=== PATIENT | female | born 1995 | race Caucasian/White ===

== ENCOUNTER 2017-01-11 23:28 | Emergency (ER) | payer BC, OTHER ==
[~2017-01-11] VITALS: Ht 172.7 cm; Wt 70.0 kg
[~2017-01-11 23:28] MED LIST: AMOX500C3 PO; BCPILLS PO; CITA20TA9 PO
[2017-01-11 23:36] VITALS: TEMP 36.7; Ht 172.7 cm; Wt 70.0 kg
[2017-01-12] MEDS ORDERED: NORE1DIS7 TOP (00:27)
[2017-01-12] MEDS ORDERED: RANI150T2 PO (00:27)
[2017-01-12] MEDS ORDERED: SODIUM CHLORIDE 0.9% 1000ML 1,000 ML IV STA (00:27)
[2017-01-12] MEDS ORDERED: KETOROLAC TROMETHAMINE 30 MG/ML VIAL IV STA (00:27)
[2017-01-12 00:42] LABS: URINE APPEARANCE CLEAR (CLEAR); URINE BILIRUBIN NEG (NEG); URINE COLOR YELLOW; URINE EPITHELIAL CELL AUTO >30 /lpf (0-5); URINE NITRITE NEG (NEG); URINE PH >= 9.0 (4.5-7.5); URINE SPECIFIC GRAVITY 1.012 (1.000-1.030); UROBILINOGEN NEG (NEG); ZZUR CULT IF INDIC CLEAN CATCH YES
[2017-01-12 00:50] LABS: MANUAL MICROSCOPIC REQUIRED? NO; REVIEW REQ? NO
[2017-01-12 01:06] LABS: BASO % 0.2 %; BASO ABS # 0.02 K/uL (0-0.2); COMPLETE YES; EOS % 0.7 %; HEMATOCRIT 39.1 % (37-47); IG% 0.2 %; LYMPH % 19.3 %; LYMPH ABS # 2.17 K/uL (1.2-3.4); MEAN CELL VOLUME 87.3 fL (80-100); MEAN CORPUSCULAR HEMOGLOBIN 30.6 pg (25-34); MEAN PLATELET VOLUME 10.7 fL (7.4-10.4); NEUT % 73.6 %; PLATELET COUNT 333 K/uL (130-400); RED BLOOD COUNT 4.48 M/uL (4.2-5.4); WHITE BLOOD COUNT 11.26 K/uL (4.8-10.8)
[2017-01-12 01:15] LABS: BUN/CREATININE RATIO 10.1 (10-20); CALCIUM 8.8 mg/dl (8.5-10.1); CREATININE 0.81 mg/dl (0.60-1.20); POTASSIUM 3.6 mmol/L (3.5-5.1)
[2017-01-12 01:17] LABS: ALB/GLOB RATIO 0.9 (0.9-2)
[2017-01-12] MEDS ORDERED: HYDR-5688 PO (02:20)
--- NOTE | 2017-01-12 02:21 | EMERGENCY ROOM VISIT NOTE ---
History First contact with patient: 23:46 Chief Complaint: BACK PAIN Stated Complaint: LOWER BACK PAIN INTO RT SIDE OF GROIN History of Present Illness The patient is a 21 year old female who presents to the Emergency Department by private vehicle for evaluation of RIGHT-sided flank and groin pain. She reports that she noticed some mild discomfort yesterday, but she had worsening pain over the last 2 hours. She had discomfort with the ride in the car to the emergency department. Her pain has since settled down. She is taking no medication for pain. She reports a history of ovarian cyst as well as kidney stone. She denies a prior abdominal surgeries otherwise. The patient rates her current discomfort as a 6/10. She denies any fevers, chills, as is, lightheadedness, chest pain, palpitations, nausea, vomiting, hematochezia, melena, hematuria, or dysuria. She denies any chance for . Review of Systems A complete 10-point Review of Systems was discussed with the patient, with pertinent positives and negatives listed in the History of Present Illness. All remaining Review of Systems questions can be considered negative unless otherwise specified. Past Medical/Surgical History Medical Problems: (1) Ovarian cyst Surgical Problems: (1) No significant past surgical history Social History Smoking Status: Never Smoker Smokeless Tobacco Use: No Alcohol Use: occasionally Marital Status: single Housing Status: lives with family Occupation Status: employed Current/Historical Medications Scheduled Norelgestromin-Ethinyl Estradi (Xulane 150-35 Mcg/24Hr), 1 PATCH TOP WK Ranitidine HCl (Ranitidine HCl), 150 MG PO BID Scheduled PRN Hydrocodone/Acetaminophen 5MG/325MG ([place] 5MG/325MG), 1-2 TABLET PO Q4H PRN for Pain Allergies Coded Allergies: No Known Allergies (Unverified , 01/12/17) Physical Exam Vital Signs Date Time Temp Pulse Resp B/P Pulse Ox O2 Delivery O2 Flow Rate FiO2 01/12/17 02:33 64 18 108/70 98 01/12/17 01:28 60 18 87/56 100 Room Air 01/11/17 23:36 36.7 67 18 116/80 99 Pain Rating (0-10): 6 Physical Exam VITAL SIGNS - Vital signs and nursing notes were reviewed. GENERAL - 21-year-old female appearing her stated age who is in no acute distress. Communicates well with provider and answers questions appropriately. LUNGS - Chest wall symmetric without accessory muscle use, intercostals retractions, or central cyanosis. Normal vesicular breath sounds CTA B/L. No wheezes, rales, or rhonchi appreciated. CARDIAC - RRR with S1/S2. No murmur, rubs, or gallops appreciated. ABDOMEN - Abdominal contour flat and without pulsations or visible masses. BS normoactive all four quadrants. No tenderness to palpation appreciated throughout. No guarding. No Rebound Tenderness. Negative Rovsing's. Negative Rock's. No palpable masses, hepatosplenomegaly, or ascites noted. Mild CVA tenderness to percussion to the RIGHT flank. PSYCH - A&Ox3 and cooperates fully with examiner. Pt is very pleasant and interacts well with examiner. Medical Decision & Procedures ER Provider Diagnostic Interpretation: KUB was obtained and demonstrates no acute intra-abdominal findings or appreciable stones per myself and my attending. Radiologist's impression unavailable at the time of dictation. Radiological imaging and reports were reviewed by myself. Radiologist's Interpretation per [facility] as follows: US RENAL: Mild right hydronephrosis with a 7 mm stone in the proximal right ureter. No left hydronephrosis. Diminished right bladder jet compared to the left. Laboratory Results 01/11/17 23:40 Red Blood Count 4.48, Mean Corpuscular Volume 87.3, Mean Corpuscular Hemoglobin 30.6, Mean Corpuscular Hemoglobin Concent 35.0, Mean Platelet Volume 10.7, Neutrophils (%) (Auto) 73.6, Lymphocytes (%) (Auto) 19.3, Monocytes (%) (Auto) 6.0, Eosinophils (%) (Auto) 0.7, Basophils (%) (Auto) 0.2, Neutrophils # (Auto) 8.30, Lymphocytes # (Auto) 2.17, Monocytes # (Auto) 0.67, Eosinophils # (Auto) 0.08, Basophils # (Auto) 0.02 01/11/17 23:40 Test 01/11/17 23:40 White Blood Count 11.26 K/uL (4.8-10.8) Red Blood Count 4.48 M/uL (4.2-5.4) Hemoglobin 13.7 g/dL (12.0-16.0) Hematocrit 39.1 % (37-47) Mean Corpuscular Volume 87.3 fL (80-100) Mean Corpuscular Hemoglobin 30.6 pg (25-34) Mean Corpuscular Hemoglobin Concent 35.0 g/dl (32-36) Platelet Count 333 K/uL (130-400) Mean Platelet Volume 10.7 fL (7.4-10.4) Neutrophils (%) (Auto) 73.6 % Lymphocytes (%) (Auto) 19.3 % Monocytes (%) (Auto) 6.0 % Eosinophils (%) (Auto) 0.7 % Basophils (%) (Auto) 0.2 % Neutrophils # (Auto) 8.30 K/uL (1.4-6.5) Lymphocytes # (Auto) 2.17 K/uL (1.2-3.4) Monocytes # (Auto) 0.67 K/uL (0.11-0.59) Eosinophils # (Auto) 0.08 K/uL (0-0.5) Basophils # (Auto) 0.02 K/uL (0-0.2) RDW Standard Deviation 41.1 fL (36.4-46.3) RDW Coefficient of Variation 12.8 % (11.5-14.5) Immature Granulocyte % (Auto) 0.2 % Immature Granulocyte # (Auto) 0.02 K/uL (0.00-0.02) Urine Color YELLOW Urine Appearance CLEAR (CLEAR) Urine pH >= 9.0 (4.5-7.5) Urine Specific [place] 1.012 (1.000-1.030) Urine Protein NEG (NEG) Urine Glucose (UA) NEG (NEG) Urine Ketones NEG (NEG) Urine Occult Blood 3+ (NEG) Urine Nitrite NEG (NEG) Urine Bilirubin NEG (NEG) Urine Urobilinogen NEG (NEG) Urine Leukocyte Esterase TRACE (NEG) Urine WBC (Auto) 5-10 /hpf (0-5) Urine RBC (Auto) >30 /hpf (0-4) Urine Hyaline Casts (Auto) 1-5 /lpf (0-5) Urine Epithelial Cells (Auto) >30 /lpf (0-5) Urine Bacteria (Auto) 1+ (NEG) Urine Test NEG (NEG) Anion Gap 6.0 mmol/L (3-11) Est Creatinine Clear Calc Drug Dose 110.8 ml/min Estimated GFR () 120.3 Estimated GFR (Non- 103.8 BUN/Creatinine Ratio 10.1 (10-20) Calcium Level 8.8 mg/dl (8.5-10.1) Total Bilirubin 0.3 mg/dl (0.2-1) Aspartate Amino Transf (AST/SGOT) 13 U/L (15-37) Alanine Aminotransferase (ALT/SGPT) 28 U/L (12-78) Alkaline Phosphatase 72 U/L (45-117) Total Protein 7.9 gm/dl (6.4-8.2) Albumin 3.7 gm/dl (3.4-5.0) Globulin 4.2 gm/dl (2.5-4.0) Albumin/Globulin Ratio 0.9 (0.9-2) Lipase 235 U/L (73-393) Medications Administered Medications (Trade) Dose Ordered Sig/Priyanka Route Start Time Stop Time Status Last Admin Dose Admin Sodium Chloride (Nss 1000ml) 1,000 ml @ 999 mls/hr Q1H1M STAT IV 01/12/17 00:27 01/12/17 01:27 DC 01/12/17 00:35 999 MLS/HR Ketorolac Tromethamine (Toradol Inj) 30 mg NOW STAT IV 01/12/17 00:27 01/12/17 00:30 DC 01/12/17 00:36 30 MG Acetaminophen/ Hydrocodone Bitart ([place] 5/325mg Home Pack) 1 homepack UD ONCE PO 01/12/17 02:30 01/12/17 02:31 DC 01/12/17 02:29 1 HOMEPACK ED Course Patient was seen and evaluated by myself. Previous emergency department visit notes were reviewed. Labs were drawn, saline lock in place. KUB and renal ultrasounds were obtained. Patient was treated with 30 mg Toradol intravenously. She was hydrated with a 1000 mL normal saline bolus. Laboratory results demonstrate a mild leukocytosis. The patient is not anemic. There are no significant electrolyte abnormalities. Urinalysis demonstrates blood, but no signs of infection. Patient was reevaluated and feels much better at this time. The patient was educated on today's findings. She was offered admission for pain control and evaluation of her large 7 mm obstructing stone versus conservative management with outpatient care at home. She would rather be discharged home. She was instructed to follow-up with urology from today's visit. She was educated on worrisome symptoms for return visit to the emergency department. Patient discharged home afebrile and in good condition. Medical Decision Given the patient's presentation and stated complaints, I did elect to perform the above-mentioned workup. The patient presents with pain to the RIGHT flank. She has no fever or significant leukocytosis. Her urinalysis consistent with blood. KUB was otherwise unremarkable. Ultrasound demonstrated obstructing proximal 7 mm calculi. Her pain was adequately controlled with IV Toradol alone. She was copiously hydrated. Patient does not wish to be admitted at this point. She'll rather follow-up with urology in the outpatient setting. I feel that this is most appropriate given her lack of symptoms with allergy at this point. She was provided pain control to use at home. She'll follow-up with urology from today's visit or return for any changing/worsening symptoms. Patient discharged home afebrile and in good condition. In the evaluation and treatment of this patient, the following differential diagnoses were considered: Pyelonephritis, hydronephrosis, appendicitis, diverticulitis, diverticulosis, ovarian torsion, ruptured ovarian cyst, ectopic , amongst others. Impression Primary Impression: Calculus of proximal right ureter Additional Impression: Renal colic on right side Departure Information Dispostion Home / Self-Care Condition GOOD Prescriptions Hydrocodone/Acetaminophen 5MG/325MG ([place] 5MG/325MG) Tab 1-2 TABLET PO Q4H Y for Pain, #24 TAB For Initial Treatment Prov: William Rhoades, ASIA 01/12/17 Referrals Rommel Bhatia (PCP) Mya Alcantara MD Patient Instructions Kidney Stones - [facility] Additional Instructions You have been treated in the Emergency Department today for a Kidney Stone ( Nephrolithiasis). You have been prescribed [place] to be used for pain control. This is a narcotic medication. You cannot drive or consume alcohol while on this medicine. This medicine should only be used for pain that cannot be controlled with over-the- counter pain medicines. For pain control, you can use the following [id number] medicines (if >12 yo): - Regular strength (325mg/tab) Tylenol (acetaminophen) 2 tabs every 4-6 hours as needed. Do not exceed 12 tablets in a 24 hour period. Avoid taking more than 4 grams (4000 mg) of Tylenol per day. This includes any other sources of acetaminophen you may take on a regular basis. - Regular strength (200 mg/tab) Advil (ibuprofen) 1-2 tabs every 4-6 hours as needed. Do not exceed a dose of 3200 mg per day. You have been provided a strainer and specimen collection cup. You should strain your urine to collect any passed stones. Your stones can be placed into the specimen cup and taken to your Urologist for further evaluation. You have been provided the contact information for the on-call Urologist. You should contact the Urologist's office tomorrow to establish a follow-up appointment from today's Emergency Department visit. Return to the Emergency Department if your symptoms persist despite the treatment plan outlined above or if you develop the following symptoms: intractable pain, fever, chills, or large amounts of blood in your urine. Problem Qualifiers
[2017-01-12] MEDS ORDERED: NORCO 5/325MG HOME PACK PO ONE (02:30)
[2017-01-12 02:33] VITALS: BP 108/70; PULSE 64; O2SAT 98
--- NOTE | 2017-01-12 07:08 | DIAGNOSTIC IMAGING REPORT ---
ULTRASOUND KIDNEYS AND BLADDER CLINICAL HISTORY: Right flank pain. COMPARISON STUDY: Abdominal CT dated 12/16/2015. TECHNIQUE: Real-time, grayscale, and color flow sonography of the kidneys and bladder is performed. Images are reviewed in the transverse and longitudinal planes. FINDINGS: Kidneys: The kidneys are normal in size and echotexture. The right kidney measures 10.2 x 4.4 x 5.4 cm and the left kidney measures 9.9 x 5.3 x 5.0 cm. There is a 7 mm shadowing obstructing calculus just below the right ureteropelvic junction. This causes mild right-sided hydronephrosis. No left-sided hydronephrosis is seen. There is no sonographic evidence of contour deforming renal mass lesion. No perinephric fluid is identified. Bladder: The bladder is normal in appearance. Bilateral ureteral jets were seen. The left jet is significantly stronger than the right. IMPRESSION: 1. There is a 7 mm obstructing calculus in the right proximal ureter just below the ureteropelvic junction. This causes mild right hydronephrosis. 2. There is no left-sided hydronephrosis. 3. The bladder is normal as imaged. Electronically signed by: Iban Smith M.D. 01/12/2017 7:06 AM Dictated Date/Time: 01/12/2017 7:04 AM
--- NOTE | 2017-01-12 07:28 | DIAGNOSTIC IMAGING REPORT ---
KUB CLINICAL HISTORY: Right flank pain. FINDINGS: 2 AP supine abdominal radiograph are correlated with renal ultrasound performed concurrently on 01/12/2017. There is a nonobstructed abdominal bowel gas pattern noting moderate colonic fecal retention. A 4 mm calcification projects over the right proximal ureter just below the transverse process of L2. This likely corresponds to the obstructing ureteral stone seen by ultrasound. No additional calcifications are seen projecting over either kidney or along the course of the ureters. The bony structures appear intact. IMPRESSION: A 4 mm calcification projects over the right proximal ureter, likely corresponding to the obstructing ureteral stone seen by ultrasound. Electronically signed by: Iban Smith M.D. 01/12/2017 7:26 AM Dictated Date/Time: 01/12/2017 7:24 AM
[2017-01-27] MEDS ORDERED: TRAM-10 PO (11:59)
[2017-01-27] MEDS ORDERED: ONDA4TAB46 PO (11:59)
[2017-01-27] MEDS ORDERED: VNTHFA/IN INH (12:02)
== END 2017-01-12 02:34 | disposition home or self-care (01) ==
LOC: C.EDB 23:30 → C.EDA 01-12 02:34
DX: N13.2 Hydronephrosis with renal and ureteral calculous obstruction (principal); N23 Unspecified renal colic; M54.5 Low back pain

== ENCOUNTER → 2017-01-25 | Outpatient (CLI) | payer OTHER ==
[~2017-01-25] MED LIST changes: -AMOX500C3 PO; -BCPILLS PO; -CITA20TA9 PO; +HYDR-5688 PO; +NORE1DIS7 TOP; +ONDA4TAB46 PO; +RANI150T2 PO; +TRAM-10 PO; +VNTHFA/IN INH
--- NOTE | 2017-01-25 14:53 | DIAGNOSTIC IMAGING REPORT ---
KUB HISTORY: N20.1 Ureteral [id number] COMPARISON: KUB 01/12/2017. FINDINGS: The bowel gas pattern is unremarkable. There are no dilated loops of small bowel to suggest an obstruction. There is a 4 mm calcification adjacent to the right L3 transverse process. Slightly represents the proximal right ureteral stone. No additional renal calculi identified. This has passed approximately 2 cm distal to the prior study. No pneumoperitoneum or pneumatosis. IMPRESSION: Slight distal migration within the 4 mm proximal right ureteral stone. Electronically signed by: Taiwo Wheat M.D. 01/25/2017 2:51 PM Dictated Date/Time: 01/25/2017 2:49 PM
== END | disposition home or self-care (01) ==
LOC: C.RAD 13:49
PROVIDERS: ATTEND Nurse Practitioner Adult Health
DX: N20.1 Calculus of ureter (principal)

== ENCOUNTER → 2017-01-27 | Outpatient (CLI) | payer OTHER ==
--- NOTE | 2017-01-27 19:03 | DIAGNOSTIC IMAGING REPORT ---
KUB CLINICAL HISTORY: N20.1 Ureteral stone COMPARISON STUDY: 01/25/2017 FINDINGS: The bowel gas pattern appears normal. There is a 3 mm calcification at the L3 level to the right of midline. This is consistent with a proximal right ureteral calculus. IMPRESSION: 1. No change in the position of the 3 mm proximal right ureteral calculus. Electronically signed by: Helder Goodwin M.D. 01/27/2017 7:01 PM Dictated Date/Time: 01/27/2017 7:00 PM
== END | disposition home or self-care (01) ==
LOC: C.RAD 18:32
PROVIDERS: ATTEND Nurse Practitioner Family
DX: N20.1 Calculus of ureter (principal)

== ENCOUNTER → 2017-01-28 | Day surgery (SDC) | payer OTHER ==
[2017-01-27 12:00] VITALS: Ht 172.7 cm; Wt 69.5 kg
[~2017-01-28] VITALS: Ht 172.7 cm; Wt 69.5 kg
[~2017-01-28] MED LIST changes: +ATROPINE SULFATE 0.1 MG/ML 5ML SYR IV PRN; +CIPROFLOXACIN 400MG / D5W IV SCH; +DEXAMETHASONE SOD INJ 4 MG/ML VIAL IV PRN; +DEXAMETHASONE SOD INJ 4 MG/ML VIAL ONE; +EpHEDrine SULFATE INJ 50 MG/ML AMP IV PRN; +FENTANYL CITRATE INJ 50 MCG/1 ML 2 ML VIAL IV PRN; +FENTANYL CITRATE INJ 50 MCG/1 ML 2 ML VIAL ONE; -HYDR-5688 PO; +KETOROLAC TROMETHAMINE 30 MG/ML VIAL IV. PRN; +LABETALOL HCL IV 5 MG/ML 20ML IV PRN; +LACTATED RINGER'S 1000ML 1,000 ML IV SCH; +LIDOCAINE HCL 2% 2 ML VIAL (20MG/ML) ONE; +METOCLOPRAMIDE HCL INJ 5 MG/ML 2 ML VIAL IV PRN; +MIDAZOLAM HCL 1 MG/ML 2ML VIAL ONE; +MoRPHine SULFATE 10 MG/ML CARP/VIAL IV PRN; +NURSING VERBAL MED ORDER ONE; +ONDANSETRON INJ 2 MG/ML 2 ML VIAL IV PRN; +ONDANSETRON INJ 2 MG/ML 2 ML VIAL ONE; +OXYCODONE/ACETAMINOPHEN 5-325 TAB PO PRN; +PHENYLEPHRINE 100MCG/ML 5ML SYR IV PRN; +PROPOFOL IV EMULSION 10 MG/ML 20 ML VIAL IV ONE
--- NOTE | 2017-01-28 07:08 | History & Physical Bridge Note ---
H&P Re-Evaluation Bridge Note: I have examined the patient, reviewed the History & Physical and in the interval since the performance of the History & Physical I have noted the following changes of clinical significance: No changes noted
--- NOTE | 2017-01-28 08:47 | Discharge Instructions ---
Discharge Instructions Date of Service Jan 28, 2017. Admission Reason for Admission: Stones Discharge Discharge Diagnosis / Problem: R upper ureteral stone s/p ESWL Discharge Goals Goal(s): Decrease discomfort, Improve disease control, Therapeutic intervention Activity Recommendations Activity Limitations: per Instructions/Follow-up section Lifting Limitations: gradually increase as tolerated Exercise/Sports Limitations: rest today, gradually increase as tolerated May Resume Sexual Activity: when tolerated Shower/Bathe: no limitations Driving or Machine Use: resume 1 day after discharge Has pain meds at home . Instructions / Follow-Up Instructions / Follow-Up Strain urine as instructed KUB prior to follow-up appointment to check on stone Discharge Diet Recommended Diet: Regular Diet (good fluid intake) Procedures Procedures Performed: Right Extracorporeal Shock Wave Lithotripsy - Ureteral Pending Studies Studies pending at discharge: no Medical Emergencies . Who to Call and When: Medical Emergencies: If at any time you feel your situation is an emergency, please call 911 immediately. . Non-Emergent Contact Non-Emergency issues call your: Urologist Call Non-Emergent contact if: you have a fever, temperature is above 101, your pain is not controlled, your pain is worsening, your pain is unusual for you, your pain is concerning you, you have any medication questions . . "Provider Documentation" section prepared by Derrell Perez. . VTE Core Measure Inpt VTE Proph given/why not?: SCD's [place] Drug Monitoring Program Search Results: patient reviewed within database, no issues identified
--- NOTE | 2017-01-28 08:49 | [facility] Post Operative Brief Note ---
Immediate Operative Summary Operative Date Jan 28, 2017. Pre-Operative Diagnosis Right Ureteral Calculi Post-Operative Diagnosis Same Procedure(s) Performed Right Extracorporeal Shock Wave Lithotripsy - Ureteral Surgeon Dr. Rachel Perez Radiation Technician Surgeon(s) None Estimated Blood Loss 0 mL Findings Good fragmentation on fluoro Specimens None Drains NA Anesthesia GALMA Complication(s) None Disposition Recovery Room / PACU
--- NOTE | 2017-01-28 09:04 | OPERATIVE REPORT ---
DATE OF OPERATION: 01/28/2017 PREOPERATIVE DIAGNOSIS: Right upper ureteral stone with renal colic. POSTOPERATIVE DIAGNOSIS: Same. PROCEDURE: Right-sided upper ureteral extracorporeal shockwave lithotripsy. SURGEON: Dr. Derrell Perez. POLICE CAPTAIN: None. ANESTHESIA: General anesthesia with laryngeal mask. COMPLICATIONS: None. FINDINGS: Good stone fragmentation on fluoroscopy. DETAILS OF PROCEDURE: The patient was brought to the litho suite. He was correctly identified and the stone was visualized on his most recent x-rays. After the correct time out was performed the patient was positioned over the therapy head. An adequate level of anesthesia was administered. The extracorporeal shockwave lithotripsy treatment was then commenced. Please see the [place] Kidney Stone Management sheet for complete treatment summary. After completion of the procedure the patient was taken to the recovery room in stable condition. I attest to the content of the Intraoperative Record and any orders documented therein. Any exceptio ns are noted below.
--- NOTE | 2017-01-28 09:38 | Anesthesia Progress Nt - [facility] ---
Anesthesia Post Op Note Date & Time Jan 28, 2017 at 09:38 Vital Signs Pain Intensity: 4 Vital Signs Past 12 Hours Date Time Temp Pulse Resp B/P Pulse Ox O2 Delivery O2 Flow Rate FiO2 01/28/17 09:19 36.8 70 12 01/28/17 09:19 69 12 100 01/28/17 09:14 64 24 01/28/17 09:14 64 24 121/80 100 01/28/17 09:10 123/82 01/28/17 09:09 84 15 100 01/28/17 09:09 84 15 01/28/17 09:04 76 12 116/75 100 01/28/17 09:04 78 12 01/28/17 09:00 116/75 01/28/17 08:59 111 21 100 01/28/17 08:59 111 21 01/28/17 08:55 118/68 01/28/17 08:55 36.5 91 16 127/76 100 Mask 6 01/28/17 08:54 97 127/76 100 01/28/17 08:54 97 01/28/17 06:27 36.7 98 20 112/79 100 Room Air Notes Mental Status: alert / awake / arousable, participated in evaluation Pt Amnestic to Procedure: Yes Nausea / Vomiting: adequately controlled Pain: adequately controlled Airway Patency, RR, SpO2: stable & adequate BP & HR: stable & adequate Hydration State: stable & adequate Anesthetic Complications: no major complications apparent
[2017-01-28 10:00] VITALS: BP 120/87; PULSE 77; O2SAT 96
== END | disposition home or self-care (01) ==
LOC: X.SURG 06:13
PROVIDERS: ATTEND Urology
DX: N20.1 Calculus of ureter (principal); J45.909 Unspecified asthma, uncomplicated

== ENCOUNTER → 2017-02-08 | Outpatient (CLI) | payer OTHER ==
[~2017-02-08] MED LIST changes: -ATROPINE SULFATE 0.1 MG/ML 5ML SYR IV PRN; -CIPROFLOXACIN 400MG / D5W IV SCH; -DEXAMETHASONE SOD INJ 4 MG/ML VIAL IV PRN; -DEXAMETHASONE SOD INJ 4 MG/ML VIAL ONE; -EpHEDrine SULFATE INJ 50 MG/ML AMP IV PRN; -FENTANYL CITRATE INJ 50 MCG/1 ML 2 ML VIAL IV PRN; -FENTANYL CITRATE INJ 50 MCG/1 ML 2 ML VIAL ONE; -KETOROLAC TROMETHAMINE 30 MG/ML VIAL IV. PRN; -LABETALOL HCL IV 5 MG/ML 20ML IV PRN; -LACTATED RINGER'S 1000ML 1,000 ML IV SCH; -LIDOCAINE HCL 2% 2 ML VIAL (20MG/ML) ONE; -METOCLOPRAMIDE HCL INJ 5 MG/ML 2 ML VIAL IV PRN; -MIDAZOLAM HCL 1 MG/ML 2ML VIAL ONE; -MoRPHine SULFATE 10 MG/ML CARP/VIAL IV PRN; -NURSING VERBAL MED ORDER ONE; -ONDANSETRON INJ 2 MG/ML 2 ML VIAL IV PRN; -ONDANSETRON INJ 2 MG/ML 2 ML VIAL ONE; -OXYCODONE/ACETAMINOPHEN 5-325 TAB PO PRN; -PHENYLEPHRINE 100MCG/ML 5ML SYR IV PRN; -PROPOFOL IV EMULSION 10 MG/ML 20 ML VIAL IV ONE
== END | disposition home or self-care (01) ==
LOC: C.LABSPEC 17:25
PROVIDERS: ATTEND Nurse Practitioner Family
DX: N20.1 Calculus of ureter (principal)

== ENCOUNTER → 2017-02-12 | Outpatient (CLI) | payer OTHER ==
--- NOTE | 2017-02-12 19:49 | DIAGNOSTIC IMAGING REPORT ---
KUB CLINICAL HISTORY: Right ureteral stone. FINDINGS: 2 AP supine abdominal radiographs are compared to a study dated 01/27/2017. There is a nonobstructed abdominal bowel gas pattern. There is no radiographic evidence of nephrolithiasis. The calculus previously identified projecting over the proximal right ureter on 01/27/2017 is no longer apparent. The bony structures appear intact. The lung bases are clear as imaged. IMPRESSION: 1. There is no radiographic evidence of nephrolithiasis on today's examination. 2. The right proximal ureteral stone seen on 01/27/2017 is no longer apparent. Dictated: 02/12/2017 5:33 PM Transcribed: 02/12/2017 7:49 PM [email or web address] Electronically signed by: Iban Smith M.D. 02/12/2017 7:51 PM Dictated Date/Time: 02/12/2017 5:33 PM
== END | disposition home or self-care (01) ==
LOC: C.RAD 17:18
PROVIDERS: ATTEND Nurse Practitioner Family
DX: N20.1 Calculus of ureter (principal)

== ENCOUNTER → 2017-04-16 | Outpatient (CLI) | payer OTHER ==
[2017-04-16 07:36] LABS: CHOLESTEROL/HDL RATIO 2.7
== END | disposition home or self-care (01) ==
LOC: C.LAB 06:26
PROVIDERS: ATTEND Emergency Medicine
DX: E78.1 Pure hyperglyceridemia (principal)

== ENCOUNTER → 2017-09-05 | Outpatient (CLI) | payer OTHER ==
[2017-09-05 21:04] LABS: BASO % 0.3 %; BASO ABS # 0.03 K/uL (0-0.2); EOS ABS # 0.18 K/uL (0-0.5); HEMATOCRIT 38.2 % (37-47); HEMOGLOBIN 13.1 g/dL (12.0-16.0); IG# 0.02 K/uL (0.00-0.02); LYMPH ABS # 2.49 K/uL (1.2-3.4); MEAN CELL VOLUME 88.2 fL (80-100); MEAN CORPUSCULAR HEMOGLOBIN 30.3 pg (25-34); MEAN CORPUSCULAR HGB CONC 34.3 g/dl (32-36); MEAN PLATELET VOLUME 10.3 fL (7.4-10.4); MONO % 7.8 %; MONO ABS # 0.69 K/uL (0.11-0.59); NEUT % 61.7 %; NEUT ABS # 5.47 K/uL (1.4-6.5); PLATELET COUNT 397 K/uL (130-400); RED CELL DISTRIBUTION WIDTH CV 12.9 % (11.5-14.5); RED CELL DISTRIBUTION WIDTH SD 41.8 fL (36.4-46.3); WHITE BLOOD COUNT 8.88 K/uL (4.8-10.8)
[2017-09-05 21:28] LABS: ALBUMIN 3.6 gm/dl (3.4-5.0); ALT/SGPT 35 U/L (12-78); BLOOD UREA NITROGEN 9 mg/dl (7-18); CALCIUM 8.7 mg/dl (8.5-10.1); CARBON DIOXIDE 25 mmol/L (21-32); CREATININE 0.68 mg/dl (0.60-1.20); GLUCOSE 89 mg/dl (70-99); POTASSIUM 3.9 mmol/L (3.5-5.1); SODIUM 137 mmol/L (136-145)
[2017-09-05 21:39] LABS: ALKALINE PHOSPHATASE 81 U/L (45-117); AST/SGOT 14 U/L (15-37); TOTAL PROTEIN 7.4 gm/dl (6.4-8.2)
== END | disposition home or self-care (01) ==
LOC: C.LAB 20:33
PROVIDERS: ATTEND Nurse Practitioner Adult Health
DX: F41.8 Other specified anxiety disorders (principal); G43.909 Migraine, unspecified, not intractable, without status migrainosus

== ENCOUNTER 2017-11-16 23:34 | Emergency (ER) | payer OTHER ==
[2017-11-16] MEDS ORDERED: CIPROFLOXACIN HCL 0.3% OP SOLN 2.5 ML BTL OP ONE (23:45)
--- NOTE | 2017-11-16 23:46 | EMERGENCY ROOM VISIT NOTE ---
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 The patient states that her eye was watering somewhat and she has some discomfort. The discomfort has somewhat improved. She was checked in for evaluation as she is at work. Past medical history: None Review of systems: No additional symptoms other than that referring to the eye. Medications: None Allergies: Azithromycin Social history: Iron Worker Foreman for [employer] CONSTITUTIONAL/VITAL SIGNS: Reviewed / noted above. GENERAL: Non-toxic in appearance. INTEGUMENTARY: Warm, dry, and [place]. HEAD: Normocephalic. EYES: The left eye was examined using direct visualization as well as slit-lamp exam. There is a small corneal abrasion that is consistent with the edge of a piece of paper scratching the cornea. It extends from the 3 o'clock position to the 12 o'clock position overlying the iris. No foreign bodies are noted. No additional abnormalities. Anterior chamber was clear. No conjunctival injection is noted. NEUROLOGICAL: Intact without focal deficits. MUSCULOSKELETAL: Normally developed with good muscle tone. Diagnosis: Corneal abrasion Disposition: The patient was started on Ciloxan eyedrops here. Anticipate improvement over the next 24-40 hours. TRIAGE NURSING DOCUMENTATION REVIEWED.
[2017-11-16 23:52] VITALS: BP 115/77; PULSE 96; TEMP 36.9; O2SAT 96; Ht 170.2 cm
== END 2017-11-16 23:59 | disposition home or self-care (01) ==
LOC: C.EDB 23:35 → C.EDD 23:59
DX: S05.02XA Injury of conjunctiva and corneal abrasion without foreign body, left eye, initial encounter (principal); W22.8XXA Striking against or struck by other objects, initial encounter; Y99.0 Civilian activity done for income or pay; Y92.89 Other specified places as the place of occurrence of the external cause

== ENCOUNTER → 2017-12-27 | Outpatient (CLI) | payer OTHER | END | disposition home or self-care (01) | LOC: C.LAB 16:39 | PROVIDERS: ATTEND Family Medicine | DX: E55.9 Vitamin D deficiency, unspecified (principal) ==